=== PATIENT | male | born 1970 | race Caucasian/White ===

== ENCOUNTER 2018-07-14 13:08 | Emergency (ER) | payer OTHER, MEDICAID ==
[~2018-07-14] VITALS: Ht 175.3 cm; Wt 74.8 kg
[2018-07-14 13:14] VITALS: BP_SYST 120
[2018-07-14 14:31] VITALS: BP_SYST 132
== END 2018-07-14 14:31 | disposition home or self-care (01) ==
LOC: SED 13:08
DX: S30.0XXA Contusion of lower back and pelvis, initial encounter (principal); E11.9 Type 2 diabetes mellitus without complications; K21.9 Gastro-esophageal reflux disease without esophagitis; I10 Essential (primary) hypertension; Z88.6 Allergy status to analgesic agent; Z88.5 Allergy status to narcotic agent; Z88.8 Allergy status to other drugs, medicaments and biological substances; W01.10XA Fall on same level from slipping, tripping and stumbling with subsequent striking against unspecified object, initial encounter; Y93.01 Activity, walking, marching and hiking; Y92.480 Sidewalk as the place of occurrence of the external cause; Y99.8 Other external cause status
CPT/HCPCS: 72220-TC; 99284

== ENCOUNTER 2023-11-15 14:22 | Inpatient (IN) | payer OTHER, MEDICAID ==
[~2023-11-15] VITALS: Ht 175.3 cm; Wt 68.0 kg
[~2023-11-15 14:22] MED LIST: NAPR-1172 PO
[2023-11-15 14:27] VITALS: BP_SYST 100; PULSE 100; RESP 17; TEMP 97.5; O2SAT 100
[2023-11-15] MEDS ORDERED: NACL 0.9% 1,000 ML IV ONE ×2 (14:45→16:45)
[2023-11-15] MEDS ORDERED: ONDANSETRON HCL 4 MG/2 ML VIAL IVP ONE ×2 (14:45→20:45)
[2023-11-15 15:39] LABS: CALCIUM 7.9 mg/dL (8.4-11.0); CREATININE 0.89 mg/dL (0.55-1.30); POTASSIUM 4.1 mmol/L (3.5-5.1)
[2023-11-15 15:40] LABS: BASOPHILS % (AUTO) 0.1 % (0.0-2.0); LYMPHOCYTES # (AUTO) 0.7 K/uL (1.0-5.5); LYMPHOCYTES % (AUTO) 5.7 % (20.5-51.5); MEAN CORPUSCULAR HEMOGLOBIN 33 pg (27-31); MEAN CORPUSCULAR HGB CONC 34 % (32-36); MEAN CORPUSCULAR VOLUME 96 fL (79.0-98.0); MONOCYTES # (AUTO) 0.6 K/uL (0.0-1.0); MONOCYTES % (AUTO) 5.2 % (1.7-9.3); NEUTROPHILS # (AUTO) 10.3 K/uL (1.8-7.7); PLATELET COUNT (AUTO) 220 K/uL (130-430); WHITE BLOOD COUNT (AUTO) 11.6 K/uL (4.8-10.8)
[2023-11-15 15:47] LABS: ALBUMIN 2.8 g/dL (3.4-4.8); BILIRUBIN,DIRECT 0.1 mg/dL (0.0-0.3); TOTAL BILIRUBIN 0.2 mg/dL (0.0-1.0); TOTAL PROTEIN, SERUM 5.1 g/dL (6.4-8.3)
[2023-11-15 15:54] LABS: RED BLOOD CELL COUNT(AUTO) 1.31 MIL/uL (4.2-6.2)
[2023-11-15 15:57] LABS: HEMOGLOBIN 4.3 g/dL (14.0-18.0)
[2023-11-15 15:58] LABS: HEMATOCRIT 12.6 % (36-54)
[2023-11-15] MEDS ORDERED: PANTOPRAZOLE SODIUM 40 MG/VIAL (PROTONIX) IVP ONE (16:45)
[2023-11-15] MEDS ORDERED: MORPHINE 4 MG INJ. 4 MG/ML VIAL IVP ONE ×2 (17:15→20:45)
[2023-11-15 18:02] LABS: OVALOCYTES FEW; POLYCHROMASIA 1+
[2023-11-15] MEDS ORDERED: PRO40 PO (21:14)
[2023-11-15] MEDS ORDERED: ONDA-8 TL (21:15)
[2023-11-15] MEDS ORDERED: SUCR1TAB2 PO (21:17)
[2023-11-15 22:19] LABS: INFLUENZA TYPE A Negative (NEGATIVE); INFLUENZA TYPE B NEGATIVE (NEGATIVE)
[2023-11-15] MEDS ORDERED: LORazepam 2 MG/ML VIAL IVP PRN (22:30)
[2023-11-15] MEDS ORDERED: MAGNESIUM SULFATE 50 ML IV PRN (22:30)
[2023-11-15] MEDS ORDERED: MUPIROCIN 2% TOPICAL OINTMENT 22 GM NS PRN (22:30)
[2023-11-15] MEDS ORDERED: ZOLPIDEM TARTRATE 5 MG TABLET PO PRN (22:30)
[2023-11-15] MEDS ORDERED: ACETAMINOPHEN 325 MG TABLET PO PRN (22:30)
[2023-11-15] MEDS ORDERED: POTASSIUM CHLORIDE 20 MEQ TABLET.ER PO PRN (22:30)
[2023-11-15] MEDS: D5NS 1,000 ML IV SCH (23:00)
[2023-11-15 23:10] VITALS: BP_SYST 111; PULSE 88; RESP 18; TEMP 98.8; O2SAT 97
[2023-11-15 23:40] LABS: BILIRUBIN,URINE NEGATIVE (NEGATIVE); BLOOD, URINE NEGATIVE (NEGATIVE); CLARITY/URINE CLEAR (CLEAR); COLOR,URINE YELLOW (YELLOW); GLUCOSE,URINE NEGATIVE (NEGATIVE); KETONES,URINE NEGATIVE (NEGATIVE); LEUKOCYTE ESTERASE ,URINE NEGATIVE (NEGATIVE); NITRITE, URINE NEGATIVE (NEGATIVE); PROTEIN URINE NEGATIVE (NEGATIVE); UROBILINOGEN,URINE 0.2 (0.2-1.0)
[2023-11-16] MEDS: PANTOPRAZOLE SODIUM 40 MG/VIAL (PROTONIX) IVP SCH ×3 (01:20→22:35)
[2023-11-16] MEDS: ONDANSETRON HCL 4 MG/2 ML VIAL IVP PRN ×2 (05:58→14:21)
[2023-11-16] MEDS: D5NS 1,000 ML IV SCH (06:31)
[2023-11-16 08:00] VITALS: BP_SYST 147; PULSE 88; RESP 20; TEMP 98.9; O2SAT 97
[2023-11-16] MEDS: MORPHINE 2 MG/ML INJ. SYRINGE IVP PRN ×3 (08:45→20:35)
[2023-11-16] MEDS: SUCRALFATE 1 GM TABLET PO SCH (09:00)
[2023-11-16 10:45] LABS: BASOPHILS % (AUTO) 0.1 % (0.0-2.0); EOSINOPHILS % (AUTO) 0.1 % (0.0-4.0); HEMATOCRIT 23.8 % (36-54); HEMOGLOBIN 8.2 g/dL (14.0-18.0); LYMPHOCYTES % (AUTO) 12.8 % (20.5-51.5); MEAN CORPUSCULAR HEMOGLOBIN 32 pg (27-31); MEAN CORPUSCULAR HGB CONC 34 % (32-36); MEAN CORPUSCULAR VOLUME 92 fL (79.0-98.0); MONOCYTES # (AUTO) 0.7 K/uL (0.0-1.0); MONOCYTES % (AUTO) 9.5 % (1.7-9.3); NEUTROPHILS # (AUTO) 6.1 K/uL (1.8-7.7); NEUTROPHILS % (AUTO) 77.5 % (40.0-70.0); PLATELET COUNT (AUTO) 205 K/uL (130-430); RED BLOOD CELL COUNT(AUTO) 2.59 MIL/uL (4.2-6.2); RED CELL DISTRIBUTION WIDTH 15.6 % (9.0-15.0); WHITE BLOOD COUNT (AUTO) 7.9 K/uL (4.8-10.8)
[2023-11-16] MEDS ORDERED: MEPERIDINE 100 MG INJ. 100 MG/ML VIAL ONE ×2 (10:49→11:18)
[2023-11-16 10:50] LABS: CALCIUM 8.1 mg/dL (8.4-11.0); CREATININE 0.82 mg/dL (0.55-1.30); POTASSIUM 3.5 mmol/L (3.5-5.1)
[2023-11-16] MEDS ORDERED: MIDAZOLAM HCL 5 MG/5 ML VIAL ONE ×2 (10:50→11:18)
[2023-11-16 10:52] LABS: TOTAL IRON BIND. CAPACITY 261 ug/dL (250-450)
[2023-11-16] MEDS ORDERED: ONDANSETRON HCL 4 MG/2 ML VIAL ONE (11:06)
[2023-11-16] MEDS ORDERED: SIMETHICONE 40 MG/0.6 ML ML ONE (11:07)
[2023-11-16] MEDS ORDERED: DIPHENHYDRAMINE INJ 50 MG/ML VIAL ONE (11:09)
[2023-11-16] MEDS ORDERED: BENZOCAINE 20% 0.5mL UD SPRAY MM ONE (11:10)
[2023-11-16 12:11] VITALS: BP_SYST 123; PULSE 99; RESP 17; TEMP 97.8; O2SAT 97
[2023-11-16 16:17] VITALS: BP_SYST 132; PULSE 90; RESP 20; TEMP 98.4; O2SAT 98
[2023-11-16 20:00] VITALS: BP_SYST 110; PULSE 81; RESP 18; TEMP 98.3; O2SAT 97
[2023-11-16 20:01] LABS: BARBITURATE, URINE NEGATIVE (NEG <=200); BENZODIAZEPINE, URINE NEGATIVE (NEG <=150); CANNABINOID, URINE POSITIVE (NEG <=50); COCAINE, URINE NEGATIVE (NEG <=150); METHAMPHETAMINES SCREEN,URINE NEGATIVE (NEG <=500); OPIATE, URINE POSITIVE (NEG <=100); PHENCYCLIDINE SCREEN,URINE NEGATIVE (NEG <=25); URINE AMPHETAMINE NEGATIVE (NEG <=500); URINE METHADONE NEGATIVE (NEG <=200); URINE OXYCODONE SCREEN NEGATIVE (NEG <=100)
[2023-11-16 20:02] LABS: UR TRICYCLIC ANTIDEPRESSANTS NEGATIVE (NEG <=300)
[2023-11-16] MEDS: DOCUSATE SODIUM 100 MG CAPSULE PO PRN (22:35)
[2023-11-16] MEDS: FERROUS SULFATE 325 MG TABLET.DR PO SCH (22:35)
[2023-11-17 00:22] VITALS: BP_SYST 103; PULSE 78; RESP 17; TEMP 97.3; O2SAT 96
[2023-11-17] MEDS: D5NS 1,000 ML IV SCH (01:14)
[2023-11-17] MEDS: MORPHINE 2 MG/ML INJ. SYRINGE IVP PRN ×2 (01:49→08:54)
[2023-11-17 06:42] LABS: BASOPHILS % (AUTO) 0.2 % (0.0-2.0); EOSINOPHILS % (AUTO) 0.6 % (0.0-4.0); LYMPHOCYTES # (AUTO) 1.1 K/uL (1.0-5.5); LYMPHOCYTES % (AUTO) 19.3 % (20.5-51.5); MEAN CORPUSCULAR HEMOGLOBIN 31 pg (27-31); MEAN CORPUSCULAR HGB CONC 34 % (32-36); MEAN CORPUSCULAR VOLUME 93 fL (79.0-98.0); MONOCYTES # (AUTO) 0.6 K/uL (0.0-1.0); MONOCYTES % (AUTO) 11.3 % (1.7-9.3); NEUTROPHILS # (AUTO) 3.9 K/uL (1.8-7.7); NEUTROPHILS % (AUTO) 68.6 % (40.0-70.0); PLATELET COUNT (AUTO) 195 K/uL (130-430); RED CELL DISTRIBUTION WIDTH 15.9 % (9.0-15.0); WHITE BLOOD COUNT (AUTO) 5.7 K/uL (4.8-10.8)
[2023-11-17 07:12] LABS: CALCIUM 7.6 mg/dL (8.4-11.0); CREATININE 0.8 mg/dL (0.55-1.30); POTASSIUM 3.3 mmol/L (3.5-5.1)
[2023-11-17 07:43] VITALS: O2SAT 98
[2023-11-17 07:48] VITALS: BP_SYST 137; PULSE 76; RESP 16; TEMP 98.3; O2SAT 98
[2023-11-17 07:51] LABS: HEMOGLOBIN 6.9 g/dL (14.0-18.0)
[2023-11-17 07:52] LABS: HEMATOCRIT 20.4 % (36-54)
[2023-11-17] MEDS: SUCRALFATE 1 GM TABLET PO SCH (08:53)
[2023-11-17] MEDS: PANTOPRAZOLE SODIUM 40 MG/VIAL (PROTONIX) IVP SCH (08:53)
[2023-11-17] MEDS: FERROUS SULFATE 325 MG TABLET.DR PO SCH (08:53)
[2023-11-17] MEDS: DOCUSATE SODIUM 100 MG CAPSULE PO PRN (08:53)
[2023-11-17] MEDS ORDERED: ACETAMINOPHEN 500 MG TABLET PO PRN ×2 (10:42→10:45)
[2023-11-17 11:05] VITALS: BP_SYST 111; PULSE 92; RESP 16; TEMP 97.2; O2SAT 99
[2023-11-17] MEDS ORDERED: FERR-31 PO (14:58)
[2023-11-17 15:21] VITALS: BP_SYST 129; PULSE 81; RESP 16; TEMP 97.7; O2SAT 99
[2023-11-17 16:09] LABS: BASOPHILS % (AUTO) 0.1 % (0.0-2.0); EOSINOPHILS % (AUTO) 0.2 % (0.0-4.0); HEMATOCRIT 26.8 % (36-54); HEMOGLOBIN 9.1 g/dL (14.0-18.0); LYMPHOCYTES # (AUTO) 1.2 K/uL (1.0-5.5); LYMPHOCYTES % (AUTO) 11.2 % (20.5-51.5); MEAN CORPUSCULAR HEMOGLOBIN 31 pg (27-31); MEAN CORPUSCULAR HGB CONC 34 % (32-36); MEAN CORPUSCULAR VOLUME 92 fL (79.0-98.0); MONOCYTES % (AUTO) 9.1 % (1.7-9.3); NEUTROPHILS # (AUTO) 8.7 K/uL (1.8-7.7); NEUTROPHILS % (AUTO) 79.4 % (40.0-70.0); PLATELET COUNT (AUTO) 251 K/uL (130-430); RED BLOOD CELL COUNT(AUTO) 2.92 MIL/uL (4.2-6.2); RED CELL DISTRIBUTION WIDTH 15.7 % (9.0-15.0)
[2023-11-17 16:26] VITALS: BP_SYST 129; PULSE 75; RESP 16; TEMP 98.9; O2SAT 100
== END 2023-11-17 17:54 | disposition home or self-care (01) | DRG 378 ==
LOC: SED 14:22 → STU 20:46 → SMU 11-17 13:02
PROVIDERS: ADMIT General Practice; ATTEND General Practice
PROC: 0DB78ZX Excision of Stomach, Pylorus, Via Natural or Artificial Opening Endoscopic, Diagnostic (ICD-10-PCS; 2023-11-16)
PROC: 30233N1 Transfusion of Nonautologous Red Blood Cells into Peripheral Vein, Percutaneous Approach (ICD-10-PCS; 2023-11-16)
PROC: 0D758ZZ Dilation of Esophagus, Via Natural or Artificial Opening Endoscopic (ICD-10-PCS; 2023-11-16)
PROC: 0DB98ZX Excision of Duodenum, Via Natural or Artificial Opening Endoscopic, Diagnostic (ICD-10-PCS; principal; 2023-11-16 10:45)
DX: K92.2 Gastrointestinal hemorrhage, unspecified (principal); D62 Acute posthemorrhagic anemia; E44.0 Moderate protein-calorie malnutrition; K31.1 Adult hypertrophic pyloric stenosis; F11.20 Opioid dependence, uncomplicated; D72.829 Elevated white blood cell count, unspecified; G89.29 Other chronic pain; K21.9 Gastro-esophageal reflux disease without esophagitis; Z20.822 Contact with and (suspected) exposure to COVID-19; Z68.22 Body mass index [BMI] 22.0-22.9, adult
CPT/HCPCS: 36415; 43239; 76376; 80048; 80076; 80307; 81001; 81003; 82272; 82607; 82728; 82746; 83037; 83540; 83550; 83690; 83735; 84484; 85025; 86886; 86900; 86901; 86920; 87081; 88305; 88312; 88313; 93005; 96361; 96374; 96375; 96376; 99291; C9113; G0378; J1200; J2175; J2250; J2270; J2405; P9021; Q9967